=== PATIENT | male | born 1985 ===

== ENCOUNTER 2016-08-31 19:15 | Emergency (ER) | payer OTHER ==
--- NOTE | 2016-08-31 20:13 | DIAGNOSTIC IMAGING REPORT ---
PROCEDURE: CT HEAD WITHOUT CONTRAST INDICATION: TRAUMA/INJURY TECHNIQUE: Axial CT images were acquired through the head. Coronal and sagittal reformations were created. COMPARISON: None. FINDINGS: No intracranial hemorrhage or extraaxial fluid collections. Ventricles are normal in size, shape and position. There is no mass, mass effect or midline shift. The carrasco-white matter differentiation is normal. There is no edema. The calvarium is intact. The paranasal sinuses and mastoid air cells are normally aerated. There is a small focus of soft tissue gas about 1.5 cm deep to the skin surface just above the left maxillary gum line, fairly close to the bone. No surrounding fluid collection/abscess. There is moderate surrounding inflammation. IMPRESSION: 1. No CT evidence of acute intracranial process. 2. Focus of extraluminal gas and inflammation in the left maxillary soft tissues just above the gum line. This may represent a penetrating injury given history of trauma. 3. Findings discussed with Jeffery Sol at [address] scans at this facility use dose modulation, iterative reconstruction, and/or weight-based dosing when appropriate to reduce radiation dose to as low as reasonably achievable.
--- NOTE | 2016-08-31 21:42 | ED CLINICAL REPORT ---
Clinical Report - Physicians/Mid Levels [facility] [address] [place] [address] 08/31/2016 19:16 Patient: CARI ZAMARRIPA Time Seen: 19:43 Mar 2016. Arrived- By private vehicle. Historian- patient and friend. HISTORY OF PRESENT ILLNESS Chief Complaint: INJURY TO HEAD and INJURY TO FACE. Location of injuries- (face/mouth). The injury occurred just prior to arrival. The patient sustained a blow. (outside). The patient complains of mild pain. The patient had loss of consciousness and was dazed. (branch tree struck patient to face/ lower lip, possible loc, does not recall about 2-3 mins he believes. NO neck pain. Reports bleeding. No prior injury to the area. NO other injuries to eyes/ face.). REVIEW OF SYSTEMS No nausea or chest pain. He sustained skin laceration. All systems otherwise negative, except as recorded above. SOCIAL HISTORY Never smoker. No alcohol use or drug use. ADDITIONAL NOTES The nursing notes have been reviewed. PHYSICAL EXAM Vital Signs: 08/31/2016 19:23 BP: 135/85. HR: 89. RR: 18. O2 saturation: 100%. Temp: 98.5 F. Pain level now: 6/10. Appearance: Alert. No acute distress. No backboard or C-collar. Head: Mouth: 1.5 cm laceration (through and through and involving the vermilion border of the lip) of the the lower lip (at upper gumline anterior to teeth he has a puncture wound.). SEE LACERATION PROCEDURE NOTE #1. No ecchymosis or foreign body. No malocclusion or dental injury. Perioral area. ENT: No dental injury. No hemotympanum. Neck: Painless ROM. Neck non-tender. No vertebral tenderness. Posterior neck: No foreign body. No tenderness or swelling. CVS: Heart sounds normal. Pulses normal. Respiratory: Breath sounds normal. Chest nontender. No chest wall injury. Skin: Skin warm. Extremities: Pelvis stable. Neuro: [place] Coma Scale: 15- eyes open spontaneously (4); best verbal response- oriented x 3 (5); best motor response- obeys commands (6). Oriented X 3. Mood/affect normal. Speech normal. No motor deficit. Normal gait. No sensory deficit. LABS, X-RAYS, AND EKG Note - Tests: (CT Head/ face: IMPRESSION: 1. No CT evidence of acute intracranial process. 2. Focus of extraluminal gas and inflammation in the left maxillary soft tissues just above the gum line. This may represent a penetrating injury given history of trauma. 3. Findings discussed with Jeffery Sol at [address] scans at this facility use dose modulation, iterative reconstruction, and/or weight-based dosing when appropriate to reduce radiation dose to as low as reasonably achievable. Electronically Final signed by:Marry Rosa MD 08/31/2016 8:13:26 PM). PROGRESS AND PROCEDURES Laceration Repair: Time: 21:45 Aug 31 2016. Location: (left lower lip). Time-out completed immediately before the procedure. Length: 1.5cm. Complexity: intermediate (layer closure). Wound depth/shape- linear. Wound is clean. Local anesthesia provided using 0.25% Marcaine. Wound cleansed and irrigated. Closure of deep layer: interrupted 4-0 (absorb, 6, internal/ external). Subcutaneous closure: interrupted 5-0 (cyndy border/ external skin alignment, non absorb 3). Course of Care: Discussed case with DR. Rosa (radiology) reports penetrating air space at upper mandible Discussed with DR. Gregg ENT who recommends close office f/u and if no fb, start abx. no signs of hemorrhage. Patient sustained a puncture wound with no foreign object and no fracture of his upper maxillary region. In addition a laceration to the lower aspect, which was closed in the emergency department. His case was discussed with ENT, he will follow with such. Otherwise he has no cervical spine tenderness. No osseous tenderness of his maxillary sinuses. Given amoxicillin in the ER. His tetanus is up-to-date per patient. He is here with friend. NO signs of concussion as his sx/ pain are isolated to site of injury. Patient is stable. Patient/family counseled. Disposition: Discharged. Condition: good. CLINICAL IMPRESSION Major penetrating head injury. Unknown whether a loss of consciousness occurred. Single deep laceration to the lower lip.Treatment of laceration not delayed. No infection. Single deep puncture wound (Left Upper Gumline). No infected puncture wound. Treatment of puncture wound not delayed. INSTRUCTIONS Apply ice. No restrictions to activity. Rest. (3 sutures removed in 6 days wound check/ ENT follow up in 1-2 days Salt water rinses to inside of mouth). Prescription Medications: Hydrocodone/APAP 5mg / 325mg: take 1 orally every 6 hours as needed for pain Amoxicillin 500 mg tablets: Take 1 orally every 8 hours for 10 days. Dispense thirty (30). No refills. Understanding of the discharge instructions verbalized by patient. Follow-up with: Guero Gregg MD, ENT, , [address], , [place], [id number] Follow up. Call for the next available appointment. (Electronically signed by Milly Sol P.A.-C 08/31/2016 22:17)
--- NOTE | 2016-08-31 21:42 | ED ORDER SUMMARY ---
..... Patient: CARI ZAMARRIPA OrderSheet [facility] VisitID: [id number] [place] [address] 31y, M Registration Date/Time: 08/31/2016 ORDER SHEET Weight: 65.7 kg Allergies: No Known Drug Allergy GENERAL ORDERS: CT Head wo Cont Urgent (19:41 08/31/2016 EKoroleva P.A.-C) (Ack 19:42 SRedmond) (19:52 RFay) Wound Irrigation (19:55 08/31/2016 EKoroleva P.A.-C) (20:11 HSoule) MEDICATION ORDERS: Tdap IM 0.5 mL (NOW, per protocol) (19:59 08/31/2016 EKoroleva P.A.-C) (Cancelled: Other20:10 EKoroleva P.A.-C) Zofran ODT PO 4 mg (NOW) (19:59 08/31/2016 EKoroleva P.A.-C) (20:11 HSoule) Tylenol PO 650 mg (NOW) (19:59 08/31/2016 EKoroleva P.A.-C) (20:11 HSoule) Amoxicillin PO 500 mg (NOW) (21:15 08/31/2016 EKoroleva P.A.-C) (Ack 21:15 HSoule) (21:18 HSoule) IV FLUIDS: ORDER SHEET NOTES: [Electronically signed by Lb Hurst R.N. (21:54 08/31/2016)] [Electronically signed by Milly Sol P.A.-C (22:17 08/31/2016)] [Electronically locked/signed by Lb Hurst R.N. (21:54 08/31/2016)]
--- NOTE | 2016-08-31 21:42 | ED CLINICAL REPORT ---
Clinical Report - Physicians/Mid Levels [facility] [address] [place] [address] 08/31/2016 19:16 Patient: CARI ZAMARRIPA Time Seen: 19:43 Mar 2016. Arrived- By private vehicle. Historian- patient and friend. HISTORY OF PRESENT ILLNESS Chief Complaint: INJURY TO HEAD and INJURY TO FACE. Location of injuries- (face/mouth). The injury occurred just prior to arrival. The patient sustained a blow. (outside). The patient complains of mild pain. The patient had loss of consciousness and was dazed. (branch tree struck patient to face/ lower lip, possible loc, does not recall about 2-3 mins he believes. NO neck pain. Reports bleeding. No prior injury to the area. NO other injuries to eyes/ face.). REVIEW OF SYSTEMS No nausea or chest pain. He sustained skin laceration. All systems otherwise negative, except as recorded above. SOCIAL HISTORY Never smoker. No alcohol use or drug use. ADDITIONAL NOTES The nursing notes have been reviewed. PHYSICAL EXAM Vital Signs: 08/31/2016 19:23 BP: 135/85. HR: 89. RR: 18. O2 saturation: 100%. Temp: 98.5 F. Pain level now: 6/10. Appearance: Alert. No acute distress. No backboard or C-collar. Head: Mouth: 1.5 cm laceration (through and through and involving the vermilion border of the lip) of the the lower lip (at upper gumline anterior to teeth he has a puncture wound.). SEE LACERATION PROCEDURE NOTE #1. No ecchymosis or foreign body. No malocclusion or dental injury. Perioral area. ENT: No dental injury. No hemotympanum. Neck: Painless ROM. Neck non-tender. No vertebral tenderness. Posterior neck: No foreign body. No tenderness or swelling. CVS: Heart sounds normal. Pulses normal. Respiratory: Breath sounds normal. Chest nontender. No chest wall injury. Skin: Skin warm. Extremities: Pelvis stable. Neuro: [place] Coma Scale: 15- eyes open spontaneously (4); best verbal response- oriented x 3 (5); best motor response- obeys commands (6). Oriented X 3. Mood/affect normal. Speech normal. No motor deficit. Normal gait. No sensory deficit. LABS, X-RAYS, AND EKG Note - Tests: (CT Head/ face: IMPRESSION: 1. No CT evidence of acute intracranial process. 2. Focus of extraluminal gas and inflammation in the left maxillary soft tissues just above the gum line. This may represent a penetrating injury given history of trauma. 3. Findings discussed with Jeffery Sol at [address] scans at this facility use dose modulation, iterative reconstruction, and/or weight-based dosing when appropriate to reduce radiation dose to as low as reasonably achievable. Electronically Final signed by:Marry Rosa MD 08/31/2016 8:13:26 PM). PROGRESS AND PROCEDURES Laceration Repair: Time: 21:45 Aug 31 2016. Location: (left lower lip). Time-out completed immediately before the procedure. Length: 1.5cm. Complexity: intermediate (layer closure). Wound depth/shape- linear. Wound is clean. Local anesthesia provided using 0.25% Marcaine. Wound cleansed and irrigated. Closure of deep layer: interrupted 4-0 (absorb, 6, internal/ external). Subcutaneous closure: interrupted 5-0 (cyndy border/ external skin alignment, non absorb 3). Course of Care: Discussed case with DR. Rosa (radiology) reports penetrating air space at upper mandible Discussed with DR. Gregg ENT who recommends close office f/u and if no fb, start abx. no signs of hemorrhage. Patient sustained a puncture wound with no foreign object and no fracture of his upper maxillary region. In addition a laceration to the lower aspect, which was closed in the emergency department. His case was discussed with ENT, he will follow with such. Otherwise he has no cervical spine tenderness. No osseous tenderness of his maxillary sinuses. Given amoxicillin in the ER. His tetanus is up-to-date per patient. He is here with friend. NO signs of concussion as his sx/ pain are isolated to site of injury. Patient is stable. Patient/family counseled. Disposition: Discharged. Condition: good. CLINICAL IMPRESSION Major penetrating head injury. Unknown whether a loss of consciousness occurred. Single deep laceration to the lower lip.Treatment of laceration not delayed. No infection. Single deep puncture wound (Left Upper Gumline). No infected puncture wound. Treatment of puncture wound not delayed. INSTRUCTIONS Apply ice. No restrictions to activity. Rest. (3 sutures removed in 6 days wound check/ ENT follow up in 1-2 days Salt water rinses to inside of mouth). Prescription Medications: Hydrocodone/APAP 5mg / 325mg: take 1 orally every 6 hours as needed for pain Amoxicillin 500 mg tablets: Take 1 orally every 8 hours for 10 days. Dispense thirty (30). No refills. Understanding of the discharge instructions verbalized by patient. Follow-up with: Guero Gregg MD, ENT, , [address], , [place], [id number] Follow up. Call for the next available appointment. (Electronically signed by Milly Sol P.A.-C 08/31/2016 22:17)
--- NOTE | 2016-08-31 21:42 | ED NURSING NOTES ---
Clinical Report - Nurses [facility] [place] [address] [place] [address] 08/31/2016 19:16 Patient: CARI ZAMARRIPA TRIAGE Triage time 19:23. Acuity: LEVEL 3. Chief Complaint: INJURY TO FACE. Alert. SEPSIS SCREEN: Sepsis Screen. Negative (no infection suspected/documented). ALBER COMA SCORE: [place] Coma Scale: 15- eyes open spontaneously (4); best verbal response- oriented x 4 (5); best motor response- obeys commands (6). --19:34 Lb Hurst R.N. 19:23 08/31/16. BP: 135/85. HR: 89. RR: 18. O2 saturation: 100% on room air. Temp: 98.5 F (oral). Pain level now: 11/29. --19:34 Lb Hurst R.N. Weight: 65.7 kg. Height/Length: 67 inches. BMI: 22.7. --19:23 Lb Hurst R.N. Medications None. --19:25 Lb Hurst R.N. Allergies No Known Drug Allergy. --19:25 Lb Hurst R.N. History Arrived by private vehicle. Historian: patient. Accompanied by friend. ( Patient states that a branch hit him in the face while he was attempting to cut it with a chainsaw, uncertain LOC. he states having "blackout" and dizziness immediately after, now resolved). This occurred today. He sustained a laceration. ( tree branch stunk patient in the mouth, lacerating lip. patient has a 2cm laceration on left lower lip, not currently bleeding.). ( unknown LOC). Treatment AUTOMOBILE GLASS TECHNICIAN: None. PAST MEDICAL HX: Negative. SOCIAL HX: Never smoker. No alcohol use or drug use. FUNCTIONAL ASSESSMENT: Functional assessment: no impairments noted. --19:34 Lb Hurst R.N. ( height and weight were stated by patients). --21:42 Lb Hurst R.N. PROBLEMS: no known problems. ADDITIONAL SURGERIES: no known surgeries. Assessment The patient states feels better. --19:34 Lb Hurst R.N. Interventions ID band on patient. To treatment room. --19:34 Lb Hurst R.N. PHYSICAL ASSESSMENT Ambulatory to room. GENERAL / NEURO / PSYCH: Alert. Oriented X 4. Appears in pain. [place] Coma Scale: 15- eyes open spontaneously (4); best verbal response- oriented x 4 (5); best motor response- obeys commands (6). HEENT: Head non-tender. Pupils equal, round and reactive to light. EOM intact. Voice within normal limits. Perioral area: laceration with controlled bleeding (involving the vermilion border of the lip) of the lower lip. No nasal injury noted. No ear drainage, nasal drainage, change in voice or tongue swelling. Mucous membranes are pink. RESPIRATORY: Respirations not labored. CVS: Capillary refill less than 2 seconds. GI / : Abdomen nontender. EXTREMITIES: Neuro-vascular status intact to the extremity. BACK: No neck or back tenderness. ROM normal to the neck and back. SKIN: Skin is warm and dry. --19:37 Lb Hurst R.N. NURSING PROGRESS NOTES Applied dressing consisting of 4x4 gauze. GENERAL / NEURO / PSYCH: Alert. Oriented X 4. RESPIRATORY: No respiratory distress. Breath sounds normal. CVS: Capillary refill less than 2 seconds. SKIN: Skin is warm and dry. Two patient identifiers checked. Call light placed in reach. Side rails up x 1. Bed placed in lowest position. Brakes of bed on. Patient ready for evaluation- chart flagged. Patient waiting for evaluation. --19:38 Lb Hurst R.N. 20:10 08/31/16. Wound irrigated with 500 mL sterile NS using a high-pressure irrigation system; patient tolerated procedure well. --20:12 Pam Redding 20:11 08/31/2016 Zofran ODT (Ondansetron) PO Oral Disintegrating Tablets 4 mg given. Allergies verified and confirmed 5 rights. --20:11 Chanell Serna 20:11 08/31/2016 Tylenol (Acetaminophen) PO Tablets 650 mg given. Allergies verified and confirmed 5 rights. --20:11 Chanell Serna ( Patient reports receiving tdap in 2013.). --20:12 Chanell Serna 21:18 08/31/2016 Amoxicillin PO Capsules 500 mg given. Allergies verified and confirmed 5 rights. --21:18 Chanell Serna ( patient received stitches in affected lip from the attending PA.). --21:54 Lb Hurst R.N. DISPOSITION / DISCHARGE Condition at departure: stable. No learning barriers present. Discharge instructions provided and reviewed with the patient. Reviewed warnings (rE: meds). Reviewed medication(s) side effects, precautions and course information. Prescription(s) given to the patient. Treatments reviewed. Reviewed referrals. Activity restrictions reviewed. Work note given. Patient verbalized understanding. Written instructions provided in Maltese. The patient was discharged home and accompanied by lpn rn hospice. He left the Emergency Department ambulatory and via private vehicle. Doughnut Maker driving. --21:53 Lb Hurst R.N. 21:45 08/31/16. BP: 124/73. HR: 76. RR: 18. O2 saturation: 98% on room air. Pain level now: 11/29. --21:53 Lb Hurst R.N. Locked/Released at 08/31/2016 21:54 by Lb Hurst R.N.
--- NOTE | 2016-08-31 21:42 | ED NURSING NOTES ---
Clinical Report - Nurses [facility] [place] [address] 08/31/2016 19:16 Patient: CARI ZAMARRIPA TRIAGE Triage time 19:23. Acuity: LEVEL 3. Chief Complaint: INJURY TO FACE. Alert. SEPSIS SCREEN: Sepsis Screen. Negative (no infection suspected/documented). ALBER COMA SCORE: [place] Coma Scale: 15- eyes open spontaneously (4); best verbal response- oriented x 4 (5); best motor response- obeys commands (6). --19:34 Lb Hurst R.N. 19:23 08/31/16. BP: 135/85. HR: 89. RR: 18. O2 saturation: 100% on room air. Temp: 98.5 F (oral). Pain level now: 11/29. --19:34 Lb Hurst R.N. Weight: 65.7 kg. Height/Length: 67 inches. BMI: 22.7. --19:23 Lb Hurst R.N. Medications None. --19:25 Lb Hurst R.N. Allergies No Known Drug Allergy. --19:25 Lb Hurst R.N. History Arrived by private vehicle. Historian: patient. Accompanied by friend. ( Patient states that a branch hit him in the face while he was attempting to cut it with a chainsaw, uncertain LOC. he states having "blackout" and dizziness immediately after, now resolved). This occurred today. He sustained a laceration. ( tree branch stunk patient in the mouth, lacerating lip. patient has a 2cm laceration on left lower lip, not currently bleeding.). ( unknown LOC). Treatment GREENKEEPER: None. PAST MEDICAL HX: Negative. SOCIAL HX: Never smoker. No alcohol use or drug use. FUNCTIONAL ASSESSMENT: Functional assessment: no impairments noted. --19:34 Lb Hurst R.N. ( height and weight were stated by patients). --21:42 Lb Hurst R.N. PROBLEMS: no known problems. ADDITIONAL SURGERIES: no known surgeries. Assessment The patient states feels better. --19:34 Lb Hurst R.N. Interventions ID band on patient. To treatment room. --19:34 Lb Hurst R.N. PHYSICAL ASSESSMENT Ambulatory to room. GENERAL / NEURO / PSYCH: Alert. Oriented X 4. Appears in pain. [place] Coma Scale: 15- eyes open spontaneously (4); best verbal response- oriented x 4 (5); best motor response- obeys commands (6). HEENT: Head non-tender. Pupils equal, round and reactive to light. EOM intact. Voice within normal limits. Perioral area: laceration with controlled bleeding (involving the vermilion border of the lip) of the lower lip. No nasal injury noted. No ear drainage, nasal drainage, change in voice or tongue swelling. Mucous membranes are pink. RESPIRATORY: Respirations not labored. CVS: Capillary refill less than 2 seconds. GI / : Abdomen nontender. EXTREMITIES: Neuro-vascular status intact to the extremity. BACK: No neck or back tenderness. ROM normal to the neck and back. SKIN: Skin is warm and dry. --19:37 Lb Hurst R.N. NURSING PROGRESS NOTES Applied dressing consisting of 4x4 gauze. GENERAL / NEURO / PSYCH: Alert. Oriented X 4. RESPIRATORY: No respiratory distress. Breath sounds normal. CVS: Capillary refill less than 2 seconds. SKIN: Skin is warm and dry. Two patient identifiers checked. Call light placed in reach. Side rails up x 1. Bed placed in lowest position. Brakes of bed on. Patient ready for evaluation- chart flagged. Patient waiting for evaluation. --19:38 Lb Hurst R.N. 20:10 08/31/16. Wound irrigated with 500 mL sterile NS using a high-pressure irrigation system; patient tolerated procedure well. --20:12 Pam Redding 20:11 08/31/2016 Zofran ODT (Ondansetron) PO Oral Disintegrating Tablets 4 mg given. Allergies verified and confirmed 5 rights. --20:11 Chanell Serna 20:11 08/31/2016 Tylenol (Acetaminophen) PO Tablets 650 mg given. Allergies verified and confirmed 5 rights. --20:11 Chanell Serna ( Patient reports receiving tdap in 2013.). --20:12 Chanell Serna 21:18 08/31/2016 Amoxicillin PO Capsules 500 mg given. Allergies verified and confirmed 5 rights. --21:18 Chanell Serna ( patient received stitches in affected lip from the attending PA.). --21:54 Lb Hurst R.N. DISPOSITION / DISCHARGE Condition at departure: stable. No learning barriers present. Discharge instructions provided and reviewed with the patient. Reviewed warnings (rE: meds). Reviewed medication(s) side effects, precautions and course information. Prescription(s) given to the patient. Treatments reviewed. Reviewed referrals. Activity restrictions reviewed. Work note given. Patient verbalized understanding. Written instructions provided in Arabic. The patient was discharged home and accompanied by motor vehicle assembler. He left the Emergency Department ambulatory and via private vehicle. Rib Sawyer driving. --21:53 Lb Hurst R.N. 21:45 08/31/16. BP: 124/73. HR: 76. RR: 18. O2 saturation: 98% on room air. Pain level now: 11/29. --21:53 Lb Hurst R.N. Locked/Released at 08/31/2016 21:54 by Lb Hurst R.N.
--- NOTE | 2016-08-31 21:42 | ED ORDER SUMMARY ---
..... Patient: CARI ZAMARRIPA OrderSheet [facility] VisitID: [id number] [place] [address] 31y, M Registration Date/Time: 08/31/2016 ORDER SHEET Weight: 65.7 kg Allergies: No Known Drug Allergy GENERAL ORDERS: CT Head wo Cont Urgent (19:41 08/31/2016 EKoroleva P.A.-C) (Ack 19:42 SRedmond) (19:52 RFay) Wound Irrigation (19:55 08/31/2016 EKoroleva P.A.-C) (20:11 HSoule) MEDICATION ORDERS: Tdap IM 0.5 mL (NOW, per protocol) (19:59 08/31/2016 EKoroleva P.A.-C) (Cancelled: Other20:10 EKoroleva P.A.-C) Zofran ODT PO 4 mg (NOW) (19:59 08/31/2016 EKoroleva P.A.-C) (20:11 HSoule) Tylenol PO 650 mg (NOW) (19:59 08/31/2016 EKoroleva P.A.-C) (20:11 HSoule) Amoxicillin PO 500 mg (NOW) (21:15 08/31/2016 EKoroleva P.A.-C) (Ack 21:15 HSoule) (21:18 HSoule) IV FLUIDS: ORDER SHEET NOTES: [Electronically signed by Lb Hurst R.N. (21:54 08/31/2016)] [Electronically signed by Milly Sol P.A.-C (22:17 08/31/2016)] [Electronically locked/signed by Lb Hurst R.N. (21:54 08/31/2016)]
--- NOTE | 2016-08-31 22:17 | ED DISCHARGE INSTRUCTIONS ---
Patient: CARI ZAMARRIPA General Instructions [facility] VisitID: [id number] [place] [address] 31y, M Registration Date/Time: 08/31/2016 Major penetrating head injury. Unknown whether a loss of consciousness occurred. Single deep laceration to the lower lip.Treatment of laceration not delayed. No infection. Single deep puncture wound (Left Upper Gumline). No infected puncture wound. Treatment of puncture wound not delayed. INSTRUCTIONS Apply ice. No restrictions to activity. Rest. (3 sutures removed in 6 days wound check/ ENT follow up in 1-2 days Salt water rinses to inside of mouth). Prescription Medications: Hydrocodone/APAP 5mg / 325mg: take 1 orally every 6 hours as needed for pain Amoxicillin 500 mg tablets: Take 1 orally every 8 hours for 10 days. Dispense thirty (30). No refills. Understanding of the discharge instructions verbalized by patient. Follow-up with: Guero Gregg MD, ENT, , [address], , [place], [id number] Follow up. Call for the next available appointment. ADDITIONAL INFORMATION Head Injury, No Wake-Up (Adult) You have had a head injury. It does not appear serious at this time. Symptoms of a more serious problem (concussion, bruising, or bleeding in the brain) may appear later. Therefore, watch for the WARNING SIGNS listed below. Home Care: Your healthcare provider will tell you whether its okay to drive. If so, you can drive yourself home. For the next day or so, be careful when driving or using heavy machinery until you are sure you have no delayed symptoms. During the next 24 hours someone must stay with you to check for the signs below. It is not necessary to stay awake or be awakened during the night. If you have swelling of the face or scalp, apply an ice pack (ice cubes in a plastic bag, wrapped in a towel) for 20 minutes. Do this every 1-2 hours until the swelling starts to go down. Do not use aspirin or ibuprofen (Motrin, Advil) after a head injury.You may use acetaminophen (Tylenol)to control pain, unless another pain medicine was prescribed. [NOTE: If you have chronic liver or kidney disease or ever had a stomach ulcer or GI bleeding, talk with your doctor before using these medicines.] For the next 24 hours: Do not take alcohol, sedatives or medicines that make you sleepy. Avoid strenuous activities. No lifting or straining. If you have had any symptoms of a concussion today (nausea, vomiting, dizziness, confusion, headache, memory loss or if you were knocked out), do not return to sports or any activity that could result in another head injury until all symptoms are gone and you have been cleared by your doctor. A second head injury before fully recovering from the first one can lead to serious brain injury. Follow Up with your doctor if symptoms are not improving after 24 hours, or as directed. [NOTE: A radiologist will review any X-rays or CT scans that were taken. We will notify you of any new findings that may affect your care.] Get Prompt Medical Attention if any of the followingWARNING SIGNS occur: Repeated vomiting Severe or worsening headache or dizziness Unusual drowsiness, or unable to awaken as usual Confusion or change in behavior or speech, memory loss, blurred vision Convulsion (seizure) Increasing scalp or face swelling Redness, warmth or pus from the swollen area Fluid drainage or bleeding from the nose or ears Laceration, Lip and Mouth Alaceration is a cut through the skin. When the cut is on the outside of the lip, it may be closed with stitches, surgical tape, or sometimes skin glue. Cuts inside the mouth may be sutured or left open, depending on the size. When stitches are used in the mouth, they are usually the kind that dissolve. Home care The following guidelines will help you care for your laceration at home: Eat soft foods to reduce pain when chewing. If the cut isinsideyour mouth, clean the wound by rinsing your mouth after each meal and at bedtime with a mixture of equal parts water and hydrogen peroxide (do not swallow!). Or, you can use a cotton swab to apply hydrogen peroxide directly onto the cut. Mouth wounds can be painful when eating. You may use a local, [id number] numbing solution for pain relief. If this is not available, you may use any numbing solution for teething babies. You may apply this directly to the sores with a cotton-tip swab or with your finger. If the cut is on theoutsideof the lip and sutures were used, you may shower as usual after the first 24 hours, but do not put your head under water until the sutures are removed. After removing the bandage, wash the area with soap and water. Use a wet cotton swab to loosen and remove any blood or crust that forms. After cleaning, keep the wound clean and dry. Talk with your doctor before applying any antibiotic ointment to the wound. You may apply an adhesive bandage or leave the wound open. If surgical tape was used, keep the area clean and dry. If it becomes wet, blot it dry with a towel. Talk with your doctor before applying any antibiotic ointment to the wound. The surgical tape closures will usually fall off after about 5 days. If skin glue was used, do not scratch, rub, or pick at the adhesive film. Do not place tape directly over the film.Do not apply liquid, ointment, or creams to the wound while the film is inplace.Do not clean the wound with peroxide and do not apply ointment. Avoid activities that cause heavy sweating until the film has fallen off. Protect the wound from prolonged exposure to sunlight or tanning lamps. You may shower as usual but do not soak the wound in water (no swimming). If you were given an antibiotic to prevent infection, do not stop taking this medication until you have finished the prescribed course or the doctor tells you to stop. The doctor may prescribe medications for pain. Follow the doctor's instructions for taking these medications.If you have chronic liver or kidney disease or ever had a stomach ulcer or GI bleeding, talk with your doctor before using these medicines. Follow-up care Follow up with your health care provider. Cuts in and around the mouth heal in about five days. However, even with proper treatment, a wound infection sometimes occurs. Therefore, check the wound daily for the warning signs listed below. Stitches should not be left in the face for more thanfivedays; otherwise, permanent stitch boateng may form. Unless told otherwise, you may remove surgical tape closures yourself afterfive days, if they have not already fallen off. Ifskin glue was used, the film will fall off by itself in 510 days. When to seek medical care Get prompt medical attention if any of these occur: Increasing pain in the wound Fever of 100.4F (38C) or higher, or as directed by your health care provider Redness, swelling, or pus coming from the wound If sutures come apart or fall out or if surgical tape falls off before three days If the wound edges reopen Bleeding not controlled by direct pressure Puncture Wound (General) A puncture wound is a hole through the skin. Bacteria, dirt and debris can be drawn into this wound, increasing the risk of infection. However, antibiotics are usually not prescribed for this injury unless signs of infection are already present. Therefore, it is important to observe the wound closely for the signs of infection listed below. Home Care: If your wound is on an arm, hand, leg, or foot, keep that part raised during the first 48 hours to reduce swelling and pain. Keep the wound clean and dry. If a bandage was applied and it becomes wet or dirty, replace it. Otherwise, leave it in place for the next 24 hours. You may use acetaminophen (Tylenol) or ibuprofen (Motrin, Advil) to control pain, unless another medicine was prescribed. [NOTE: If you have chronic liver or kidney disease or ever had a stomach ulcer or GI bleeding, talk with your doctor before using these medicines.] You may shower as usual. However, do not soak the area in water (no baths or swimming) during the first 48 hours. Follow Up: Most puncture wounds heal within 10 days. However, an infection may sometimes occur despite proper treatment. If small particles were drawn into the puncture wound (such as fragments of cloth, rubber, wood or dirt), an infection may occur. These fragments are very hard to find during the first exam since it is not possible to get a good look inside a puncture wound and they do not show on an X-ray. Antibiotics and a minor surgical procedure to find and remove the foreign object will be needed if this happens. Therefore, check the wound daily for the warning signs listed below. Get Prompt Medical Attention if any of the following occur: SIGNS OF INFECTION: Increasing pain in the wound Redness, swelling, pus or red lines coming from the wound Fever of 100.4F (38C) or higher, or as directed by your healthcare provider You have been given the following additional information: HEAD INJURY, No Wake-Up (Adult) Laceration, Lip/Mouth Puncture Wound, General No restrictions to activity. Rest. (Electronically signed by Milly Sol P.A.-C 08/31/2016 22:17)
--- NOTE | 2016-08-31 22:17 | ED MAR SUMMARY ---
..... Medication Administration Record [facility] [address] [place] [address] Patient: CARI ZAMARRIPA Visit ID: [id number] 31y, M Weight: 65.7 kg Height/Length: 67 in BMI: 22.7 ALLERGIES: No Known Drug Allergy Given 20:08/31/2016 Chanell Serna, Medication Administered: ZOFRAN ODT [PO] (ONDANSETRON), Dose: 4 mg Oral Disintegrating Tablets PO. Medication Ordered: Zofran ODT PO 4 mg (NOW). Given 20:08/31/2016 Chanell Serna, Medication Administered: TYLENOL [PO] (ACETAMINOPHEN), Dose: 650 mg Tablets PO. Medication Ordered: Tylenol PO 650 mg (NOW). Given 21:08/31/2016 Chanell Serna, Medication Administered: AMOXICILLIN [PO], Dose: 500 mg Capsules PO. Medication Ordered: Amoxicillin PO 500 mg (NOW).
--- NOTE | 2016-08-31 22:17 | ED MED RECONCILIATION SUMMARY ---
Patient: CARI ZAMARRIPA Medication Reconciliation Report [facility] VisitID: [id number] [place] [address] 31y, M Registration Date/Time: 08/31/2016 Weight: 65.7 kg Height/Length: 67 in. BMI: 22.7 ALLERGIES: No Known Drug Allergy The patient's Home Medications are listed below: NONE. The source(s) of the original Home Medication information: Not obtained. The following Medications were given to the patient in the Emergency Department: Zofran ODT [PO] PO 4 mg, administered: 08/31/2016 8:11:00 PM Tylenol [PO] PO 650 mg, administered: 08/31/2016 8:11:00 PM Amoxicillin [PO] PO 500 mg, administered: 08/31/2016 9:18:00 PM The following Medications were prescribed to the patient: Hydrocodone/APAP 5mg / 325mg: take 1 orally every 6 hours as needed for pain -- Milly Sol P.A.-C Amoxicillin 500 mg tablets: Take 1 orally every 8 hours for 10 days. Dispense thirty (30). No refills. -- Milly Sol P.A.-C
--- NOTE | 2016-08-31 22:17 | ED MED RECONCILIATION SUMMARY ---
Patient: CARI ZAMARRIPA Medication Reconciliation Report [facility] VisitID: [id number] [place] [address] 31y, M Registration Date/Time: 08/31/2016 Weight: 65.7 kg Height/Length: 67 in. BMI: 22.7 ALLERGIES: No Known Drug Allergy The patient's Home Medications are listed below: NONE. The source(s) of the original Home Medication information: Not obtained. The following Medications were given to the patient in the Emergency Department: Zofran ODT [PO] PO 4 mg, administered: 08/31/2016 8:11:00 PM Tylenol [PO] PO 650 mg, administered: 08/31/2016 8:11:00 PM Amoxicillin [PO] PO 500 mg, administered: 08/31/2016 9:18:00 PM The following Medications were prescribed to the patient: Hydrocodone/APAP 5mg / 325mg: take 1 orally every 6 hours as needed for pain -- Milly Sol P.A.-C Amoxicillin 500 mg tablets: Take 1 orally every 8 hours for 10 days. Dispense thirty (30). No refills. -- Milly Sol P.A.-C
--- NOTE | 2016-08-31 22:17 | ED MAR SUMMARY ---
..... Medication Administration Record [facility] [address] [place] [address] Patient: CARI ZAMARRIPA Visit ID: [id number] 31y, M Weight: 65.7 kg Height/Length: 67 in BMI: 22.7 ALLERGIES: No Known Drug Allergy Given 20:08/31/2016 Chanell Serna, Medication Administered: ZOFRAN ODT [PO] (ONDANSETRON), Dose: 4 mg Oral Disintegrating Tablets PO. Medication Ordered: Zofran ODT PO 4 mg (NOW). Given 20:08/31/2016 Chanell Serna, Medication Administered: TYLENOL [PO] (ACETAMINOPHEN), Dose: 650 mg Tablets PO. Medication Ordered: Tylenol PO 650 mg (NOW). Given 21:08/31/2016 Chanell Serna, Medication Administered: AMOXICILLIN [PO], Dose: 500 mg Capsules PO. Medication Ordered: Amoxicillin PO 500 mg (NOW).
== END 2016-08-31 21:49 | disposition home or self-care (01) ==
LOC: ED SRH 19:15
DX: S09.90XA Unspecified injury of head, initial encounter (principal); S01.511A Laceration without foreign body of lip, initial encounter; W22.8XXA Striking against or struck by other objects, initial encounter; Y93.89 Activity, other specified; Y92.9 Unspecified place or not applicable; Y99.9 Unspecified external cause status